=== PATIENT | male | born 1990 | race Caucasian/White ===

== ENCOUNTER 2024-02-14 21:32 | Emergency (ER) | payer BC ==
[~2024-02-14] VITALS: Ht 182.9 cm; Wt 86.2 kg
[2024-02-14] MEDS ORDERED: MORPHINE SULFATE INJ 4 MG/ML DISP.SYRIN ONE (22:00)
[2024-02-14] MEDS ORDERED: ONDANSETRON HCL/PF 4 MG/2 ML VIAL ONE (22:00)
[2024-02-14] MEDS: ONDANSETRON HCL/PF - ER 4 MG/2 ML VIAL IV ONE (22:11)
[2024-02-14] MEDS: MORPHINE SULFATE INJ 2 MG/ML DISP.SYRIN IV ONE (22:11)
[2024-02-14] MEDS ORDERED: PROPOFOL 0 ML ONE (23:01)
[2024-02-14] MEDS ORDERED: PROPOFOL 20 ML IV ONE (23:03)
[2024-02-14] MEDS: PROPOFOL 200 MG/20 ML VIAL IV ONE (23:19)
[2024-02-14] MEDS ORDERED: NAPR-1009 PO (23:38)
[2024-02-15 02:24] VITALS: BP 140/81; TEMP 97.8; O2SAT 99
== END 2024-02-15 02:25 | disposition home or self-care (01) ==
LOC: ER 21:46
DX: S83.014A Lateral dislocation of right patella, initial encounter (principal); T22.111A Burn of first degree of right forearm, initial encounter; Z91.018 Allergy to other foods; X58.XXXA Exposure to other specified factors, initial encounter; Y93.89 Activity, other specified; Y92.098 Other place in other non-institutional residence as the place of occurrence of the external cause; Y99.8 Other external cause status
CPT/HCPCS: 99285; 27560; 96374; 96375; 73562; 99152; 93005; 73560; J2704; J2270; J2405; 73564-TC; J3490